=== PATIENT | male | born 1950 | race Hispanic/Latino ===

== ENCOUNTER 2020-11-22 06:42 | Day surgery (SDC) | payer OTHER ==
[2020-11-17 11:16] LABS: Absolute Lymphocytes (CBC) 1.8 K/uL (0.7-4.9); Basophils % 0.7 % (0-1.3); Hematocrit 41.1 % (39.6-49.0); Lymphocytes % 28.5 % (15.3-44.8); MPV 11.4 fL (7.6-11.3); RBC Red Blood Cell Count 4.65 M/uL (4.33-5.43)
[2020-11-17 11:22] LABS: Protime INR 0.95
--- NOTE | 2020-11-17 11:22 | RAD REPORT ---
EXAM DESCRIPTION: RAD - Chest Pa And Lat (2 Views) - 11/17/2020 11:13 am CLINICAL HISTORY: preop COMPARISON: No comparisons FINDINGS: Lines: None. Lungs: No evidence of edema or pneumonia. Pleural: No significant pleural effusions or pneumothorax. Cardiac: The heart size is within normal limits. Bones: No acute fractures. Other: IMPRESSION: No acute cardiopulmonary disease.
[2020-11-22] MEDS ORDERED: Gentamicin Inj 240 MG in NA CHLORIDE 0.9% 100 ML IV ONE (07:00)
[2020-11-22] MEDS ORDERED: AMPICILLIN SODIUM 2 GM in NA CHLORIDE 0.9% 100 ML IVPB SCH (07:00)
[2020-11-22] MEDS ORDERED: Ringers Lactate 1,000 ML IV ONE (07:39)
[2020-11-22] MEDS ORDERED: ACETAMINOPHEN 500 MG TAB PO ONE (08:10)
[2020-11-22] MEDS ORDERED: ACETAMINOPHEN 500 MG TAB ONE (08:31)
[2020-11-22] MEDS ORDERED: FENTANYL CITR 100 MCG/2 ML ONE (08:47)
[2020-11-22] MEDS ORDERED: ONDANSETRON 4 MG/2 ML VIAL ONE (08:47)
[2020-11-22] MEDS ORDERED: propofoL 200 MG/20 ML VIAL IV ONE (08:47)
[2020-11-22] MEDS ORDERED: LIDOCAINE 1% MPF 5 ML VIAL ONE (08:47)
[2020-11-22] MEDS ORDERED: PHENAZOPYRIDINE 100MG TAB PO ONE ×2 (09:12→11:40)
[2020-11-22] MEDS ORDERED: CODEINE 30MG/APAP 300MG TAB PO PRN (09:12)
[2020-11-22] MEDS ORDERED: GLYCOPYRROLATE 0.2 MG/ML SYR ONE (09:50)
[2020-11-22] MEDS ORDERED: EPHEDRINE SULF 50 MG/ML VIAL ONE (09:51)
[2020-11-22] MEDS ORDERED: MIDAZOLAM HCL 2 MG/2 ML INJ ONE (10:18)
--- NOTE | 2020-11-22 11:31 | OP ---
Date of Procedure: 11/22/2020 Surgeon: JOHN SCHUMACHER Preoperative Diagnosis: Bladder calculus approximately 2 cm. Postoperative Diagnosis: Bladder calculus approximately 2 cm. Principle Procedure: Cystolitholapaxy using holmium laser. Indication For Procedure: Mr. Macedo presented to the [facility]rology [facility] with obstructive lower urinary symptoms, partially secondary to BPH, but also secondary to the bladder calculus. He had associated gross hematuria and underwent evaluation, which suggested the size of the stone was about 2 cm. He was counseled on the need for operative management to include at least fragmentation and removal of the stone, but also the potential benefit to bipolar transurethral resection of the prostate since any procedure like a prostatic urethral lift involving a foreign body may precipitate additional calcification of the foreign body. The patient elected not to proceed with surgical therapy at this time, electing to remain on medical therapy alone and so we will simply have the bladder calculus removed today. Procedure In Detail: The patient was consented in the preoperative holding area before being transferred to the operative suite where general anesthesia was induced. He was given ampicillin 2 g and gentamicin 240 mg IV antimicrobial prophylaxis. Pneumo boots were provided for DVT prophylaxis. He was placed in the lithotomy position, padded and secured to the table appropriately. His genitalia were prepped using Hibiclens and he was draped in standard fashion. The case was begun using urethral sounds to dilate the meatus and fossa navicularis to 30-Welsh. Then, using a 26-Welsh resectoscope and visual obturator, the urethra was traversed and the bladder was entered. Of note, there was significant lateral lobar hypertrophy with mild elevation of the median bar and with mild intravesical projection of the median lobe without obstruction of the ureteral orifices, but only just abutting the trigone. I then utilized the Sydnie retractor within the resectoscope to employ a 5- Welsh ureteral access catheter and within which a 550 nm laser fiber was passed. The stone was then targeted and was fragmented in its entirety using the holmium laser at a power setting of 1 joule and between 20 and 30 hertz. Once the fragments were sufficiently small enough to removed via the resectoscope, I used an Ellik evacuator to remove the fragments, which were then sent for pathologic analysis. I then directly removed any additional small fragments that did not come out with Ellik evacuator under direct vision. In the end, the patient was stone free and there was no significant injury to the bladder other than 2 small tiny areas of mucosal ablation from the laser. As a result, an 18-Welsh urethral Hargrove catheter was placed into his bladder with ease, and 20 mL of sterile water was placed in the balloon. The patient was then taken out of the lithotomy position, awakened from general anesthesia, transferred to a stretcher, and then transferred to the recovery room in good condition. Complications: None. Discharge Disposition: He will be discharged with a catheter and may have it removed tomorrow in the Urology Clinic or alternatively he may take it out himself at home with instruction. Subsequent followup should occur within the next few weeks with nurse practitioner, Del where 24-hour urine studies via [facility] should be obtained to figure out why he formed these bladder calculi and try to decrease the risk of future stone forming of that. He should continue on medical therapy for his BPH since that is likely an underlying contributor. Follow up with me about 1 month after the Litholink is completed. YOLI/ROSS Voice ID: [id number] Report ID: [id number]
[2020-11-22 11:41] VITALS: BP 151/66; TEMP 97; O2SAT 99
== END 2020-11-22 12:20 | disposition home or self-care (01) ==
LOC: OR 06:42
PROVIDERS: ATTEND Urology
PROC: 0TCB8ZZ Extirpation of Matter from Bladder, Via Natural or Artificial Opening Endoscopic (ICD-10-PCS; principal; 2020-11-22 08:30)
DX: N21.0 Calculus in bladder (principal); Z20.822 Contact with and (suspected) exposure to COVID-19
CPT/HCPCS: 93005; 87088; 85025; 87086; 80048; 36415; 85610; 88300; 82360; 71046; 52317; U0002; J2704; J1580; J2250; J3010; J7120; J2405; J0290